=== PATIENT | female | born 1970 | race Caucasian/White ===

== ENCOUNTER 2020-07-28 14:23 | Emergency (ER) | payer SELFPAY ==
[~2020-07-28] VITALS: Ht 175.3 cm; Wt 143.0 kg
[2020-07-28 14:27] VITALS: BP 144/99
--- NOTE | 2020-07-28 15:11 | RAD ---
Right lower extremity venous real time grayscale, color and spectral duplex ultrasound was performed. History: Pain and swelling Comparison: None The right common femoral, femoral, and popliteal veins demonstrate anechoic lumina, full compressib ility, augmentable waveforms, and cephalad color Doppler flow. The posterior tibial are also patent . Normal flow is also seen in the cephalad portion of the saphenous vein. Impression: No evidence of DVT in the right lower extremity. Electronically signed by: Ramin Wakefield MD (07/28/2020 3:09 PM) [id number]
--- NOTE | 2020-07-28 16:13 | PHYS DOC ---
Past History Past Medical History: Anxiety, Cancer, Diabetes, High Cholesterol, Hypertension Past Surgical History: Hysterectomy, Tonsillectomy, Other Alcohol Use: Occasionally General Adult EDM: Chief Complaint: LOWER EXT PAIN HPI: HPI: Patient is a 50-year-old female with right lower extremity pain. States she has had the pain in the past but came back a couple weeks ago and was exacerbated by walking up multiple flights of steps. Patient was seen by her primary provider who instructed her to come in to the ED for an ultrasound to rule out DVT. Patient denies any history of DVTs. Denies any shortness of breath, chest pain, fevers. Has baseline smoker's cough, had COVID-19 in April. Review of Systems: Review of Systems: All other systems within normal limits except for as noted in the HPI Allergies: Allergies: Allergies Coded Allergies Type Severity Reaction Last Updated Verified No Known Drug Allergies 07/28/20 No Physical Exam: PE: Constitutional: Well developed, well nourished, no acute distress, non-toxic appearance. [] HENT: Normocephalic, atraumatic, bilateral external ears normal, nose normal. [] Eyes: PERRLA, conjunctiva normal, no discharge. [] Neck: No rigidity, supple, no stridor. [] Cardiovascular: Regular rate and rhythm, brisk cap refill [] Lungs & Thorax: Non labored symmetric respirations, no tachypnea or respiratory distress [] Abdomen: Soft, nondistended. Skin: Warm, dry, no erythema, no rash. [] Back: Unremarkable Extremities: No deformities, range of motion grossly intact, no lower extremity edema. Tenderness on right joint line, no tenderness to calf squeeze, no popl iteal fossa tenderness. No anterior, posterior, varus, valgus laxity [] Neurologic: Alert and oriented X 3, no focal deficits noted. [] Psychologic: Affect normal, judgement normal, mood normal. [] Current Patient Data: Vital Signs: Vital Signs Date Time Temp Pulse Resp B/P (MAP) Pulse Ox O2 Delivery O2 Flow Rate FiO2 07/28/20 14:27 98.3 69 18 144/99 (114) 99 Room Air EKG: EKG: [] Radiology/Procedures: Radiology/Procedures: Right lower extremity venous real time grayscale, color and spectral duplex ultrasound was performed. History: Pain and swelling Comparison: None The right common femoral, femoral, and popliteal veins demonstrate anechoic lumina, full compressibility, augmentable waveforms, and cephalad color Doppler flow. The posterior tibial are also patent. Normal flow is also seen in the cephalad portion of the saphenous vein. Impression: No evidence of DVT in the right lower extremity. [] Heart Score: C/O Chest Pain: No Risk Factors: Risk Factors: DM, Current or recent (<one month) smoker, HTN, HLP, family history of CAD, obesity. Risk Scores: Score 0 - 3: 2.5% MACE over next 6 weeks - Discharge Home Score 4 - 6: 20.3% MACE over next 6 weeks - Admit for Clinical Observation Score 7 - 10: 72.7% MACE over next 6 weeks - Early Invasive Strategies Course & Med Decision Making: Course & Med Decision Making Pertinent Labs and Imaging studies reviewed. (See chart for details) [] Dragon Disclaimer: Dragon Disclaimer: This electronic medical record was generated, in whole or in part, using a voice recognition dictation system. Departure Departure: Impression: Primary Impression: Right knee pain Disposition: 01 DC HOME SELF CARE/HOMELESS Condition: STABLE Referrals: YUE VELASCO (PCP) Patient Instructions: RICE - Routine Care for Injuries Additional Instructions: Use the hinged knee brace when up and moving around until pain is resolved, if pain not resolving or is worsening follow-up with your primary care or orthopedics. BREEZY PRADO MD Jul 28, 2020 16:13
== END 2020-07-28 16:29 | disposition home or self-care (01) ==
LOC: ER 14:23
DX: M25.561 Pain in right knee (principal); F41.9 Anxiety disorder, unspecified; E11.9 Type 2 diabetes mellitus without complications; E78.00 Pure hypercholesterolemia, unspecified; I10 Essential (primary) hypertension
CPT/HCPCS: 93971; 99284

== ENCOUNTER → 2020-12-30 | Outpatient (CLI) | payer OTHER ==
--- NOTE | 2020-12-30 17:14 | RAD ---
Three-view right knee HISTORY: AP lateral oblique views HISTORY: Pain There is marginal spurring of all 3 compartments. There is a large dense effusion on the lateral view . IMPRESSION: 1. Moderate osteoporosis is advanced for the patient's age. 2. Large hemarthrosis. Consider possible ACL tear. Electronically signed by: Luis Coyne III, MD (12/30/2020 5:11 PM) [id number]
== END ==
LOC: RAD 14:12
PROVIDERS: ATTEND Nurse Practitioner Family
DX: M81.0 Age-related osteoporosis without current pathological fracture (principal); M25.061 Hemarthrosis, right knee; M76.891 Other specified enthesopathies of right lower limb, excluding foot; M25.461 Effusion, right knee; M25.561 Pain in right knee
CPT/HCPCS: 73562